=== PATIENT | female | born 1965 ===

== ENCOUNTER 2018-08-13 09:54 | Inpatient (IN) | payer MEDICAID, OTHER ==
[2018-08-13] MEDS ORDERED: Albuterol-Ipratrop 3 mg / 0.5 (3 ml) UD IH STA (10:06)
[2018-08-13] MEDS ORDERED: Levalbuterol 1.25 MG/3 ML Inhal Soln UD IH STA ×3 (10:06→11:51)
[2018-08-13] MEDS ORDERED: Magnesium Sulfate 2 gm/50 ml 2 GM/50 ML BAG IVPB ONE (10:08)
[2018-08-13 10:46] LABS: BASO # 0.02 K/mm3 (0.0-2.0); BASO % 0.2 % (0.0-3.0); EOS % 0.1 % (1.5-5.0); GRAN # 8.11 (1.4-6.5); GRAN % 80.8 % (50.0-68.0); HEMOGLOBIN 14.7 g/dL (12.0-16.0); LYMPH # 1.4 (1.2-3.4); MEAN CORPUSCULAR HEMOGLOBIN 30.1 pg (25.0-35.0); MEAN CORPUSCULAR HGB CONC 33.1 g/dl (31.0-37.0); MEAN PLATELET VOLUME 11.7 fl (7.0-11.0); MONO # 0.5 (0.1-0.6); MONO % 4.9 % (1.0-6.0); RBC 4.88 10^6/uL (3.5-6.1); RED CELL DISTRIBUTION WIDTH 13.9 % (11.5-14.5)
[2018-08-13 10:58] LABS: INR 0.98; PROTHROMBIN TIME 11.3 SECONDS (9.4-12.5)
[2018-08-13 11:00] LABS: ALB/GLOB RATIO 1.1 (1.1-1.8); ALBUMIN 4.2 g/dL (3.0-4.8); ALT/SGPT 28 U/L (7-56); AST/SGOT 35 U/L (14-36); BLOOD UREA NITROGEN 11 mg/dL (7-21); CALCIUM 9.5 mg/dL (8.4-10.5); GFR NON-AFRICAN AMERICAN > 60
--- NOTE | 2018-08-13 11:22 | RAD ---
Date of service: 08/13/2018 HISTORY: SOB COMPARISON: No prior. FINDINGS: LUNGS: The lungs are well inflated and clear. PLEURA: No pleural effusions or pneumothorax. CARDIOVASCULAR: There is mild cardiomegaly. Status post CABG. No aortic atherosclerotic calcification present. OSSEOUS STRUCTURES: Within normal limits for the patient's age. VISUALIZED UPPER ABDOMEN: Normal. OTHER FINDINGS: None. IMPRESSION: No active pulmonary disease.
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
[2018-08-13 12:16] LABS: ARTERIAL BLOOD GAS HCO3 26.6 mmol/L (21-28); ARTERIAL BLOOD GAS HEMOGLOBIN 14.3 g/dL (11.7-17.4); ARTERIAL BLOOD GAS O2 CAPACITY 19.9 mL/dl (16-24); ARTERIAL BLOOD GAS O2 CONTENT 19.9 ML/dl (15-23); ARTERIAL BLOOD GAS O2 SAT 100.2 % (95-98); ARTERIAL BLOOD GAS PCO2 41 mm/Hg (35-45); ARTERIAL BLOOD GAS PH 7.42 (7.35-7.45); ARTERIAL BLOOD GAS TCO2 27.9 mmol.L (22-28)
[2018-08-13] MEDS ORDERED: Albuterol-Ipratrop 3 mg / 0.5 (3 ml) UD IH PRN (13:07)
[2018-08-13] MEDS ORDERED: Levalbuterol 1.25 MG/3 ML Inhal Soln UD IH PRN (13:09)
[2018-08-13] MEDS ORDERED: Albuterol-Ipratrop 3 mg / 0.5 (3 ml) UD IH SCH ×2 (14:00→15:30)
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
[2018-08-13] MEDS: Enoxaparin 40 mg Syringe SC SCH (14:24)
[2018-08-13 15:32] LABS: HDL CHOLESTEROL 61 mg/dL (29-60)
[2018-08-13 15:43] LABS: LDL CHOLESTEROL 60 mg/dL (0-129)
[2018-08-13 15:45] LABS: TROPONIN I < 0.01 ng/mL
[2018-08-13 16:42] VITALS: BMI 46.0
[2018-08-13] MEDS: Insulin Lispro (humaLOG) MEDIUM Coverage SC SCH (16:58)
[2018-08-13] MEDS: Levalbuterol 1.25 MG/3 ML Inhal Soln UD IH PRN ×2 (17:20→21:19)
--- NOTE | 2018-08-13 18:35 | CARD ---
APPROVED REPORT Date of service: 08/13/2018 EKG Measurement Heart [id number] <Conclusion> Sinus tachycardia Minimal voltage criteria for LVH, may be normal variant Nonspecific T wave abnormality Abnormal ECG
[2018-08-13 22:39] VITALS: RESP 20
[2018-08-14] MEDS: Levalbuterol 1.25 MG/3 ML Inhal Soln UD IH PRN ×3 (00:22→11:26)
[2018-08-14] MEDS: Insulin Lispro (humaLOG) MEDIUM Coverage SC SCH ×4 (08:04→17:41)
[2018-08-14] MEDS ORDERED: Ipratropium 0.02% Inhal Soln (0.5 mg/2.5 ml) UD IH PRN (09:44)
[2018-08-14] MEDS ORDERED: Levalbuterol 1.25 MG/3 ML Inhal Soln UD IH PRN (09:44)
[2018-08-14] MEDS ORDERED: MethylPREDNISolone 40 mg Vial IVP SCH (10:00)
[2018-08-14] MEDS ORDERED: ENALAPRIL 5 MG PO SCH (10:00)
[2018-08-14] MEDS: Enoxaparin 40 mg Syringe SC SCH (11:21)
[2018-08-14] MEDS: Ipratropium 0.02% Inhal Soln (0.5 mg/2.5 ml) UD IH SCH ×3 (11:25→19:57)
[2018-08-14] MEDS: Levalbuterol 1.25 MG/3 ML Inhal Soln UD IH SCH ×3 (11:51→19:57)
--- NOTE | 2018-08-14 13:43 | CP.PCM.PN ---
<Fadi Copeland - Last Filed: 08/14/18 14:17> Subjective - Date & Time of Evaluation Date of Evaluation: 08/14/18 Time of Evaluation: 13:41 - Subjective Subjective: Pt seen and examined this morning at bedside. Pt reports wheezing and trouble breathing overnight. Objective - Vital Signs/Intake and Output Vital Signs (last 24 hours): Temp Pulse Resp BP Pulse Ox 98.3 F 99 H 20 159/88 H 98 08/14/18 06:00 08/14/18 11:22 08/14/18 06:00 08/14/18 11:22 08/14/18 06:00 Intake and Output: 08/14/18 08/14/18 06:59 18:59 Intake Total 1240 Balance 1240 - Medications Medications: Current Medications Azithromycin (Zithromax) 250 mg PO DAILY [facility]; Protocol Last Admin: 08/14/18 11:21 Dose: 250 mg Enoxaparin Sodium (Lovenox) 40 mg SC DAILY [facility]; Protocol Last Admin: 08/14/18 11:21 Dose: 40 mg Insulin Human Lispro (Humalog Med) 0 units SC [facility]; Protocol Last Admin: 08/14/18 08:15 Dose: Not Given Ipratropium [place] (Atrovent) 0.5 mg IH [id number] [facility] Last Admin: 08/14/18 11:25 Dose: 0.5 mg Ipratropium [place] (Atrovent) 0.5 mg IH Q2H PRN PRN Reason: Shortness of Breath Levalbuterol HCl (Xopenex) 1.25 mg IH Q2H PRN PRN Reason: Shortness of Breath Levalbuterol HCl (Xopenex) 1.25 mg IH [id number] [facility] Last Admin: 08/14/18 11:51 Dose: Not Given Lisinopril (Zestril) 5 mg PO DAILY [facility] Last Admin: 08/14/18 11:22 Dose: 5 mg Montelukast Sodium (Singulair) 10 mg PO DAILY [facility] Last Admin: 08/14/18 11:22 Dose: 10 mg Prednisone (Prednisone Tab) 40 mg PO DAILY [facility] - Labs Labs: 08/13/18 10:25 08/13/18 10:25 PT 11.3 SECONDS (9.4-12.5) 08/13/18 10:25 INR 0.98 08/13/18 10:25 APTT 27.0 Seconds (25.1-36.5) 08/13/18 10:25 - Constitutional Appears: Well, Non-toxic - Head Exam Head Exam: ATRAUMATIC, NORMAL INSPECTION, NORMOCEPHALIC - Eye Exam Eye Exam: EOMI - ENT Exam ENT Exam: Mucous Membranes Moist - Neck Exam Neck Exam: Full ROM - Respiratory Exam Respiratory Exam: Wheezes, NORMAL BREATHING PATTERN. absent: Accessory Muscle Use, Respiratory Distress, Stridor - Cardiovascular Exam Cardiovascular Exam: RRR, +S1, +S2. absent: Diastolic murmur, Murmur - GI/Abdominal Exam GI & Abdominal Exam: Soft, Normal Bowel Sounds. absent: Distended - Extremities Exam Extremities Exam: Full ROM. absent: Calf Tenderness, Pedal Edema - Neurological Exam Neurological Exam: Alert, Awake, Oriented x3 - Psychiatric Exam Psychiatric exam: Normal Affect, Normal Mood - Skin Skin Exam: Dry, Intact, Warm Assessment and Plan - Assessment and Plan (Free Text) Assessment: Pt is a 52 yo female with a PMH of HTN, DM, herniated inter vertebral disc COPD, asthma, ?TIA who presents to the ED complaining of SOB and a productive cough with green sputum which started 4 days ago. Plan: COPD Exacerbation - xopenex, pt will need 6 treatments in the first 24 hours of admission - prednisone 40mg PO Q12 - azithromycin - blood cultures: NGTD, 24hr - restart home CPAP at night Atypical Chest Pain - troponin x2 negative - follow up EKG, sinus tachycardia - lipid panel: Trig 82, LDL 60, HDL 61 DM - HA1C- 5.8 - SSI, Med - accuchecks ACHS HTN - continue home lisinopril 5 Pedal Edema - ECHO: pending read Herniated Disc, Back Pain - Percocet 5/325, verified with pharmacy Ppx - lovenox - famotidine Pt seen, examined, assessment and plan discussed with Dr Irma Copeland PGY1 <Tay Solis - Last Filed: 08/16/18 15:30> Objective - Vital Signs/Intake and Output Vital Signs (last 24 hours): Temp Pulse Resp BP Pulse Ox 98.1 F 83 20 133/83 98 08/15/18 14:00 08/15/18 14:00 08/15/18 14:00 08/15/18 14:00 08/15/18 14:00 - Labs Labs: 08/15/18 07:00 08/15/18 07:00 PT 11.3 SECONDS (9.4-12.5) 08/13/18 10:25 INR 0.98 08/13/18 10:25 APTT 27.0 Seconds (25.1-36.5) 08/13/18 10:25 Attending/Attestation - Attestation I have personally seen and examined this patient.: Yes I have fully participated in the care of the patient.: Yes I have reviewed all pertinent clinical information, including history, physical exam and plan: Yes Notes (Text): 08/16/18 15:30 Medical record note made by the resident after discussion with my direction and input after the patient was personally seen and examined by me. I have reviewed the chart and agree that the record accurately reflects by personal performance of the history, physical exam, data review, and medical decision-making, in the course for the patient. I have also personally directed the plan of care.
--- NOTE | 2018-08-14 15:49 | CARD ---
APPROVED REPORT Date of service: 08/14/2018 EXAM: Two-dimensional and M-mode echocardiogram with Doppler and color Doppler. INDICATION LEG EDEMA/ESTABLISH EF 2D DIMENSIONS Left Atrium (2D)3.2 (1.6-4.0cm)IVSd1.0 (0.7-1.1cm) LVDd5.0 (3.9-5.9cm)PWd1.1 (0.7-1.1cm) LVDs3.7 (2.5-4.0cm)FS (%) 26.3 % LVEF (%)45.0 (>50%) M-Mode DIMENSIONS Aortic Root2.10 (2.2-3.7cm)Aortic Cusp Exc.1.20 (1.5-2.0cm) Aortic Valve AoV Peak [place]291.0cm/[place] Peak GR.9mmHg Mitral Valve MV E Mpsjhdvz284.0cm/sMV A Qudvfenw57.7cm/sE/A ratio1.1 TDI E/Lateral E'0.0E/Medial E'0.0 LEFT VENTRICLE The left ventricle is normal size. There is normal left ventricular wall thickness. The systolic function is mildly impaired. No Regional wall motion abnormalities noted. The left ventricular diastolic function is normal. No left ventricle thrombus noted on this study. RIGHT VENTRICLE The right ventricle is normal size. There is normal right ventricular wall thickness. The right ventricular systolic function is normal. ATRIA The left atrium size is normal. The right atrium size is normal. AORTIC VALVE The aortic valve is not well visualized. No aortic regurgitation is present. There is no aortic valvular stenosis. MITRAL VALVE The mitral valve is not well visualized. There is no mitral valve regurgitation noted. There is no mitral valve stenosis. TRICUSPID VALVE There is no tricuspid valve regurgitation noted. PULMONIC VALVE There is no pulmonic valvular regurgitation. GREAT VESSELS The aortic root is normal in size. The IVC is normal in size and collapses >50% with inspiration. PERICARDIAL EFFUSION There is no pericardial effusion. <Conclusion> The left ventricle is normal size. There is normal left ventricular wall thickness. The systolic function is mildly impaired. No Regional wall motion abnormalities noted. The left ventricular diastolic function is normal.
[2018-08-15] MEDS: Levalbuterol 1.25 MG/3 ML Inhal Soln UD IH SCH ×4 (00:21→11:15)
[2018-08-15] MEDS: Ipratropium 0.02% Inhal Soln (0.5 mg/2.5 ml) UD IH SCH ×4 (00:21→11:15)
[2018-08-15] MEDS: Insulin Lispro (humaLOG) MEDIUM Coverage SC SCH ×2 (04:35→10:48)
[2018-08-15 07:17] LABS: BASO # 0.01 K/mm3 (0.0-2.0); BASO % 0.1 % (0.0-3.0); EOS % 0.2 % (1.5-5.0); GRAN # 8.81 (1.4-6.5); GRAN % 71.3 % (50.0-68.0); HEMOGLOBIN 13.6 g/dL (12.0-16.0); LYMPH # 2.8 (1.2-3.4); LYMPH % 22.9 % (22.0-35.0); MEAN CELL VOLUME 93.9 fl (80.0-105.0); MEAN CORPUSCULAR HEMOGLOBIN 29.8 pg (25.0-35.0); MEAN CORPUSCULAR HGB CONC 31.7 g/dl (31.0-37.0); MEAN PLATELET VOLUME 11.3 fl (7.0-11.0); MONO # 0.7 (0.1-0.6); MONO % 5.5 % (1.0-6.0); RBC 4.57 10^6/uL (3.5-6.1); RED CELL DISTRIBUTION WIDTH 14.5 % (11.5-14.5); WHITE BLOOD COUNT 12.4 10^3/ul (4.5-11.0)
[2018-08-15 08:05] LABS: ALB/GLOB RATIO 1.1 (1.1-1.8); ALBUMIN 3.8 g/dL (3.0-4.8); ALT/SGPT 39 U/L (7-56); AST/SGOT 25 U/L (14-36); BLOOD UREA NITROGEN 21 mg/dL (7-21); CALCIUM 8.8 mg/dL (8.4-10.5); GFR NON-AFRICAN AMERICAN > 60
[2018-08-15] MEDS: Enoxaparin 40 mg Syringe SC SCH (10:47)
[2018-08-15 14:49] VITALS: BP 133/83; PULSE 83; TEMP 98.1; O2SAT 98
--- NOTE | 2018-08-15 17:44 | CP.PCM.DIS ---
<Fadi Copeland - Last Filed: 08/15/18 17:50> Provider - Provider Date of Admission: 08/13/18 12:40 Attending physician: Tay Solis MD Time Spent in preparation of Discharge (in minutes): 45 Diagnosis - Discharge Diagnosis (1) Asthma Status: Acute Priority: High (2) COPD exacerbation Status: Acute Priority: High (3) Atypical chest pain Status: Acute Priority: High (4) HTN (hypertension) Status: Chronic Priority: Medium (5) Herniated disc Status: Chronic Priority: Medium Hospital Course - Lab Results Lab Results: Micro Results 08/13/18 10:30 Blood-Venous Blood Culture - Preliminary NO GROWTH AFTER 48 HOURS 08/13/18 10:00 Blood-Venous Blood Culture - Preliminary NO GROWTH AFTER 48 HOURS Most Recent Lab Values WBC 12.4 10^3/ul (4.5-11.0) H D 08/15/18 07:00 RBC 4.57 10^6/uL (3.5-6.1) 08/15/18 07:00 Hgb 13.6 g/dL (12.0-16.0) 08/15/18 07:00 Hct 42.9 % (36.0-48.0) 08/15/18 07:00 MCV 93.9 fl (80.0-105.0) 08/15/18 07:00 MCH 29.8 pg (25.0-35.0) 08/15/18 07:00 MCHC 31.7 g/dl (31.0-37.0) 08/15/18 07:00 RDW 14.5 % (11.5-14.5) 08/15/18 07:00 Plt Count 267 10^3/uL (120.0-450.0) 08/15/18 07:00 MPV 11.3 fl (7.0-11.0) H 08/15/18 07:00 Gran % 71.3 % (50.0-68.0) H 08/15/18 07:00 Lymph % (Auto) 22.9 % (22.0-35.0) 08/15/18 07:00 [place] % (Auto) 5.5 % (1.0-6.0) 08/15/18 07:00 Eos % (Auto) 0.2 % (1.5-5.0) L 08/15/18 07:00 Baso % (Auto) 0.1 % (0.0-3.0) 08/15/18 07:00 Gran # 8.81 (1.4-6.5) H 08/15/18 07:00 Lymph # (Auto) 2.8 (1.2-3.4) 08/15/18 07:00 [place] # (Auto) 0.7 (0.1-0.6) H 08/15/18 07:00 Eos # (Auto) 0.0 (0.0-0.7) 08/15/18 07:00 Baso # (Auto) 0.01 K/mm3 (0.0-2.0) 08/15/18 07:00 PT 11.3 SECONDS (9.4-12.5) 08/13/18 10:25 INR 0.98 08/13/18 10:25 APTT 27.0 Seconds (25.1-36.5) 08/13/18 10:25 pCO2 41 mm/Hg (35-45) 08/13/18 12:14 pO2 213.0 mm/Hg (80-100) H 08/13/18 12:14 HCO3 26.6 mmol/L (21-28) 08/13/18 12:14 ABG pH 7.42 (7.35-7.45) 08/13/18 12:14 ABG Total CO2 27.9 mmol.L (22-28) 08/13/18 12:14 ABG O2 Saturation 100.2 % (95-98) H 08/13/18 12:14 ABG O2 Content 19.9 ML/dl (15-23) 08/13/18 12:14 ABG Base Excess 1.9 mmol/L (-2.0-3.0) 08/13/18 12:14 ABG Hemoglobin 14.3 g/dL (11.7-17.4) 08/13/18 12:14 ABG Carboxyhemoglobin 2.3 % (0.5-1.5) H 08/13/18 12:14 POC ABG HHb (Measured) -0.2 % (0-5) L 08/13/18 12:14 ABG Methemoglobin 1.1 % (0.0-3.0) 08/13/18 12:14 ABG O2 Capacity 19.9 mL/dl (16-24) 08/13/18 12:14 Hgb O2 Saturation 96.7 % (95.0-98.0) 08/13/18 12:14 FiO2 100.0 % 08/13/18 12:14 Sodium 137 mmol/L (132-148) 08/15/18 07:00 Potassium 4.0 mmol/L (3.6-5.0) 08/15/18 07:00 Chloride 103 mmol/L (98-107) 08/15/18 07:00 Carbon Dioxide 29 mmol/L (21-33) 08/15/18 07:00 Anion Gap 9 (10-20) L 08/15/18 07:00 BUN 21 mg/dL (7-21) 08/15/18 07:00 Creatinine 0.8 mg/dl (0.7-1.2) 08/15/18 07:00 Est GFR ( Amer) > 60 08/15/18 07:00 Est GFR (Non-Af Amer) > 60 08/15/18 07:00 POC Glucose (mg/dL) 106 mg/dL (65-110) 08/15/18 11:24 Random Glucose 99 mg/dL (70-110) 08/15/18 07:00 Hemoglobin A1c 5.8 % (4.2-6.5) 08/13/18 11:30 Calcium 8.8 mg/dL (8.4-10.5) 08/15/18 07:00 Total Bilirubin 0.4 mg/dL (0.2-1.3) 08/15/18 07:00 AST 25 U/L (14-36) 08/15/18 07:00 ALT 39 U/L (7-56) 08/15/18 07:00 Alkaline Phosphatase 59 U/L (38-126) 08/15/18 07:00 Troponin I < 0.01 ng/mL 08/13/18 21:00 Total Protein 7.1 g/dL (5.8-8.3) 08/15/18 07:00 Albumin 3.8 g/dL (3.0-4.8) 08/15/18 07:00 Globulin 3.4 gm/dL 08/15/18 07:00 Albumin/Globulin Ratio 1.1 (1.1-1.8) 08/15/18 07:00 Triglycerides 82 mg/dL (35-160) 08/13/18 15:10 Cholesterol 142 mg/dL (130-200) 08/13/18 15:10 LDL Cholesterol Direct 60 mg/dL (0-129) 08/13/18 15:10 HDL Cholesterol 61 mg/dL (29-60) H 08/13/18 15:10 - Hospital Course Hospital Course: Pt is a 52 yo female with a PMH of HTN, DM, herniated intervertebral disc COPD, asthma, ?TIA who presented to the ED 08/13/18 complaining of SOB and a productive cough with green sputum which started 4 days prior to admission. Pt reported SOB and wheezing with associated subjective fevers/chills but did not check her temperature at home. Pt also experienced 8/10 burning chest pain which was only associated with when she would cough. Her fiancee by the bedside stated she uses her inhaler daily, but her symptoms became worse the night prior to admission.. She report history of admission secondary to Asthma. Never intubated and not steroid dependent. Pt denied recent travel, sick contacts, diarrhea, constipation, nausea, vomiting, or urinary symptoms. Pt reported nothing makes the cough better or worse. On admission, pt appeared in respiratory distress and anxious. She was given duoneb treatment, 3 treatments of xopenex and solumedrol 125 mg for asthma exacerbation in the ED. She was given 3 more treatments of xopenex and started on azithromycin and methylprednisolone 40mg Q12. Symptoms improved and Methylprednisolone subsequently changed to PO prednisone 40mg.. Blood cultures were negative. Pt was restarted on her CPAP at night. Workup was also done for her chest pain. Troponins were negative x2, EKG showed, lipid panel showed: Trig 82, LDL 60, HDL 61. Pt had pedal edema on exam and echo showed EF 45%, mildly impaired systolic function, normal left ventricular size and wall thickness with no regional wall motion abnormalities. Pt was also continued on her home lisinopril 5mg for hypertension. Pts symptoms continued to improve. She was discharge on Prednisone taper, Azithromycin 250mg PO daily, Albuterol sulfate inhaler, symbicort inhaler. - Date & Time of H&P Date of H&P: 08/15/18 Time of H&P: 07:00 Discharge Exam - Head Exam Head Exam: ATRAUMATIC, NORMAL INSPECTION, NORMOCEPHALIC - Eye Exam Eye Exam: EOMI - ENT Exam ENT Exam: Mucous Membranes Moist - Neck Exam Neck exam: Full Rom - Respiratory Exam Respiratory Exam: NORMAL BREATHING PATTERN. absent: Accessory Muscle Use, Resp iratory Distress, Stridor - Cardiovascular Exam Cardiovascular Exam: RRR, +S1, +S2. absent: Diastolic murmur, Systolic Murmur - GI/Abdominal Exam GI & Abdominal Exam: Normal Bowel Sounds, Soft, Unremarkable - Extremities Exam Extremities exam: pedal pulses present - Neurological Exam Neurological exam: Alert, Oriented x3 - Psychiatric Exam Psychiatric exam: Normal Affect, Normal Mood - Skin Skin Exam: Dry, Intact, Warm Discharge Plan - Discharge Medications Prescriptions: Albuterol Sulfate [Ventolin Hfa] 1 puff IH PRN PRN #1 inhaler PRN Reason: Wheezing Budesonide/Formoterol Fumarate [Symbicort 160-4.5 Mcg Inhaler] 10.2 gm IH BID #1 hfa.aer.ad RX: predniSONE [predniSONE Tab] See Taper PO DAILY #30 tab - Follow Up Plan Condition: FAIR Disposition: HOME/ ROUTINE Instructions: Wheezing, Avoiding Asthma Triggers, Flu Vaccine, Asthma (DC) Additional Instructions: 1. please follow up your primary care physician within 1 week 2. please continue to take your medications as prescribed 4. please use your symbicort and ventolin inhalers as directed 5. please take your prednisone taper taper 6. please return to the nearest emergency room if your symptoms return or worsen <Tay Solis - Last Filed: 08/16/18 15:26> Provider - Provider Date of Admission: 08/13/18 12:40 Attending physician: Tay Solis MD Hospital Course - Lab Results Lab Results: Micro Results 08/13/18 10:30 Blood-Venous Blood Culture - Preliminary NO GROWTH AFTER 3 DAYS 08/13/18 10:00 Blood-Venous Blood Culture - Preliminary NO GROWTH AFTER 3 DAYS Most Recent Lab Values WBC 12.4 10^3/ul (4.5-11.0) H D 08/15/18 07:00 RBC 4.57 10^6/uL (3.5-6.1) 08/15/18 07:00 Hgb 13.6 g/dL (12.0-16.0) 08/15/18 07:00 Hct 42.9 % (36.0-48.0) 08/15/18 07:00 MCV 93.9 fl (80.0-105.0) 08/15/18 07:00 MCH 29.8 pg (25.0-35.0) 08/15/18 07:00 MCHC 31.7 g/dl (31.0-37.0) 08/15/18 07:00 RDW 14.5 % (11.5-14.5) 08/15/18 07:00 Plt Count 267 10^3/uL (120.0-450.0) 08/15/18 07:00 MPV 11.3 fl (7.0-11.0) H 08/15/18 07:00 Gran % 71.3 % (50.0-68.0) H 08/15/18 07:00 Lymph % (Auto) 22.9 % (22.0-35.0) 08/15/18 07:00 [place] % (Auto) 5.5 % (1.0-6.0) 08/15/18 07:00 Eos % (Auto) 0.2 % (1.5-5.0) L 08/15/18 07:00 Baso % (Auto) 0.1 % (0.0-3.0) 08/15/18 07:00 Gran # 8.81 (1.4-6.5) H 08/15/18 07:00 Lymph # (Auto) 2.8 (1.2-3.4) 08/15/18 07:00 [place] # (Auto) 0.7 (0.1-0.6) H 08/15/18 07:00 Eos # (Auto) 0.0 (0.0-0.7) 08/15/18 07:00 Baso # (Auto) 0.01 K/mm3 (0.0-2.0) 08/15/18 07:00 PT 11.3 SECONDS (9.4-12.5) 08/13/18 10:25 INR 0.98 08/13/18 10:25 APTT 27.0 Seconds (25.1-36.5) 08/13/18 10:25 pCO2 41 mm/Hg (35-45) 08/13/18 12:14 pO2 213.0 mm/Hg (80-100) H 08/13/18 12:14 HCO3 26.6 mmol/L (21-28) 08/13/18 12:14 ABG pH 7.42 (7.35-7.45) 08/13/18 12:14 ABG Total CO2 27.9 mmol.L (22-28) 08/13/18 12:14 ABG O2 Saturation 100.2 % (95-98) H 08/13/18 12:14 ABG O2 Content 19.9 ML/dl (15-23) 08/13/18 12:14 ABG Base Excess 1.9 mmol/L (-2.0-3.0) 08/13/18 12:14 ABG Hemoglobin 14.3 g/dL (11.7-17.4) 08/13/18 12:14 ABG Carboxyhemoglobin 2.3 % (0.5-1.5) H 08/13/18 12:14 POC ABG HHb (Measured) -0.2 % (0-5) L 08/13/18 12:14 ABG Methemoglobin 1.1 % (0.0-3.0) 08/13/18 12:14 ABG O2 Capacity 19.9 mL/dl (16-24) 08/13/18 12:14 Hgb O2 Saturation 96.7 % (95.0-98.0) 08/13/18 12:14 FiO2 100.0 % 08/13/18 12:14 Sodium 137 mmol/L (132-148) 08/15/18 07:00 Potassium 4.0 mmol/L (3.6-5.0) 08/15/18 07:00 Chloride 103 mmol/L (98-107) 08/15/18 07:00 Carbon Dioxide 29 mmol/L (21-33) 08/15/18 07:00 Anion Gap 9 (10-20) L 08/15/18 07:00 BUN 21 mg/dL (7-21) 08/15/18 07:00 Creatinine 0.8 mg/dl (0.7-1.2) 08/15/18 07:00 Est GFR ( Amer) > 60 08/15/18 07:00 Est GFR (Non-Af Amer) > 60 08/15/18 07:00 POC Glucose (mg/dL) 106 mg/dL (65-110) 08/15/18 11:24 Random Glucose 99 mg/dL (70-110) 08/15/18 07:00 Hemoglobin A1c 5.8 % (4.2-6.5) 08/13/18 11:30 Calcium 8.8 mg/dL (8.4-10.5) 08/15/18 07:00 Total Bilirubin 0.4 mg/dL (0.2-1.3) 08/15/18 07:00 AST 25 U/L (14-36) 08/15/18 07:00 ALT 39 U/L (7-56) 08/15/18 07:00 Alkaline Phosphatase 59 U/L (38-126) 08/15/18 07:00 Troponin I < 0.01 ng/mL 08/13/18 21:00 Total Protein 7.1 g/dL (5.8-8.3) 08/15/18 07:00 Albumin 3.8 g/dL (3.0-4.8) 08/15/18 07:00 Globulin 3.4 gm/dL 08/15/18 07:00 Albumin/Globulin Ratio 1.1 (1.1-1.8) 08/15/18 07:00 Triglycerides 82 mg/dL (35-160) 08/13/18 15:10 Cholesterol 142 mg/dL (130-200) 08/13/18 15:10 LDL Cholesterol Direct 60 mg/dL (0-129) 08/13/18 15:10 HDL Cholesterol 61 mg/dL (29-60) H 08/13/18 15:10 Attending/Attestation - Attestation I have personally seen and examined this patient.: Yes I have fully participated in the care of the patient.: Yes I have reviewed all pertinent clinical information, including history, physical exam and plan: Yes Notes (Text): 08/16/18 15:23 Medical record note made by the resident after discussion with my direction and input after the patient was personally seen and examined by me. I have reviewed the chart and agree that the record accurately reflects by personal performance of the history, physical exam, data review, and medical decision-making, in the course for the patient. I have also personally directed the plan of care. 52 yo female with a PMH of HTN, DM,COPD, Chronic Back Pain and sleep apnea on CPAP was admitted with COPD exacerbation. Patient has responded will to Nebs /Steroid and antibiotics. Issue of ongoing smoking and drug abuse was discussed in detail with her. Patient will be discharged home and will follow up with PCP Management plan was discussed in detail with patient. Education was provided.
== END 2018-08-15 17:10 | disposition home or self-care (01) | DRG 96 ==
LOC: ED 09:54 → ERH 12:40 → 5RSO 15:27
PROVIDERS: ADMIT Internal Medicine; ATTEND Internal Medicine
DX: J45.901 Unspecified asthma with (acute) exacerbation (principal); J44.1 Chronic obstructive pulmonary disease with (acute) exacerbation; I10 Essential (primary) hypertension; E11.9 Type 2 diabetes mellitus without complications; G47.30 Sleep apnea, unspecified; K21.9 Gastro-esophageal reflux disease without esophagitis; M51.27 Other intervertebral disc displacement, lumbosacral region; E66.01 Morbid (severe) obesity due to excess calories; Z68.42 Body mass index [BMI] 45.0-49.9, adult; Z79.84 Long term (current) use of oral hypoglycemic drugs; Z87.891 Personal history of nicotine dependence

== ENCOUNTER 2018-09-24 11:57 | Emergency (ER) | payer MEDICAID ==
[2018-09-24 12:01] VITALS: BMI 44.0
[2018-09-24] MEDS ORDERED: Albuterol-Ipratrop 3 mg / 0.5 (3 ml) UD IH STA (12:27)
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
[2018-09-24 13:05] LABS: BASO # 0.03 K/mm3 (0.0-2.0); BASO % 0.2 % (0.0-3.0); EOS # 0.2 (0.0-0.7); GRAN # 16.45 (1.4-6.5); GRAN % 89.8 % (50.0-68.0); HEMOGLOBIN 15.9 g/dL (12.0-16.0); LYMPH # 0.9 (1.2-3.4); LYMPH % 5.1 % (22.0-35.0); MEAN CELL VOLUME 91.3 fl (80.0-105.0); MEAN CORPUSCULAR HEMOGLOBIN 30.7 pg (25.0-35.0); MEAN CORPUSCULAR HGB CONC 33.6 g/dl (31.0-37.0); MEAN PLATELET VOLUME 11.4 fl (7.0-11.0); MONO # 0.7 (0.1-0.6); MONO % 3.9 % (1.0-6.0); RBC 5.18 10^6/uL (3.5-6.1); RED CELL DISTRIBUTION WIDTH 14.2 % (11.5-14.5); WHITE BLOOD COUNT 18.3 10^3/uL (4.5-11.0)
[2018-09-24 13:55] LABS: BLOOD UREA NITROGEN 9 mg/dL (7-21); GFR NON-AFRICAN AMERICAN > 60
--- NOTE | 2018-09-24 14:28 | RAD ---
Date of service: 09/24/2018 HISTORY: dyspnea COMPARISON: 08/13/2018 FINDINGS: LUNGS: No active pulmonary disease. PLEURA: No significant pleural effusion identified, no pneumothorax apparent. CARDIOVASCULAR: No aortic atherosclerotic calcification present. Mild cardiomegaly no pulmonary vascular congestion. OSSEOUS STRUCTURES: Sternal wires VISUALIZED UPPER ABDOMEN: Normal. OTHER FINDINGS: None. IMPRESSION: No active disease.
[2018-09-24 14:52] VITALS: BP 122/74; PULSE 88; RESP 19; TEMP 98.2; O2SAT 98
== END 2018-09-24 14:52 | disposition home or self-care (01) ==
LOC: ED 11:57
DX: J45.901 Unspecified asthma with (acute) exacerbation (principal); J02.0 Streptococcal pharyngitis; I10 Essential (primary) hypertension; E11.9 Type 2 diabetes mellitus without complications; Z87.891 Personal history of nicotine dependence; Z91.14 Patient's other noncompliance with medication regimen
CPT/HCPCS: 71045; 80048; 85025; 87430; 96374; 99282; J2930

== ENCOUNTER 2018-10-17 10:51 | Emergency (ER) | payer MEDICAID ==
[2018-10-17 10:52] VITALS: BMI 44.0
[2018-10-17 11:12] VITALS: RESP 18; TEMP 98.1
[2018-10-17] MEDS ORDERED: Albuterol-Ipratrop 3 mg / 0.5 (3 ml) UD IH STA (11:34)
[2018-10-17] MEDS ORDERED: PrednisoLONE 15 mg/5 ml Oral Syrup (240 ml) PO STA (11:34)
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
[2018-10-17 12:26] LABS: BASO # 0.03 K/mm3 (0.0-2.0); BASO % 0.4 % (0.0-3.0); EOS # 0.4 (0.0-0.7); EOS % 4.4 % (1.5-5.0); GRAN # 4.97 (1.4-6.5); GRAN % 62.7 % (50.0-68.0); HEMOGLOBIN 14.6 g/dL (12.0-16.0); LYMPH # 2.2 (1.2-3.4); LYMPH % 27.5 % (22.0-35.0); MEAN CELL VOLUME 90.4 fl (80.0-105.0); MEAN CORPUSCULAR HEMOGLOBIN 29.8 pg (25.0-35.0); MEAN PLATELET VOLUME 11.2 fl (7.0-11.0); MONO # 0.4 (0.1-0.6); RBC 4.9 10^6/uL (3.5-6.1); RED CELL DISTRIBUTION WIDTH 14.3 % (11.5-14.5); WHITE BLOOD COUNT 7.9 10^3/uL (4.5-11.0)
--- NOTE | 2018-10-17 12:38 | RAD ---
Date of service: 10/17/2018 HISTORY: sob COMPARISON: 09/24/2018 FINDINGS: LUNGS: No active pulmonary disease. PLEURA: No significant pleural effusion identified, no pneumothorax apparent. CARDIOVASCULAR: No aortic atherosclerotic calcification present. Normal cardiac size. No pulmonary vascular congestion. OSSEOUS STRUCTURES: Sternal wires VISUALIZED UPPER ABDOMEN: Normal. OTHER FINDINGS: None. IMPRESSION: No active disease.
[2018-10-17 12:43] LABS: ALB/GLOB RATIO 1.2 (1.1-1.8); ALBUMIN 3.9 g/dL (3.0-4.8); ALT/SGPT 32 U/L (7-56); AST/SGOT 18 U/L (14-36); BLOOD UREA NITROGEN 12 mg/dL (7-21); CALCIUM 9.3 mg/dL (8.4-10.5); GFR NON-AFRICAN AMERICAN > 60
[2018-10-17 12:47] LABS: TROPONIN I < 0.01 ng/mL
[2018-10-17 13:38] VITALS: BP 123/70; PULSE 91; O2SAT 97
--- NOTE | 2018-10-17 14:59 | CARD ---
APPROVED REPORT Date of service: 10/17/2018 EKG Measurement Heart [id number] <Conclusion> Normal sinus rhythm Nonspecific T wave abnormality LVH by voltage Q in lll
== END 2018-10-17 13:34 | disposition home or self-care (01) ==
LOC: ED 10:51
DX: J44.9 Chronic obstructive pulmonary disease, unspecified (principal); I10 Essential (primary) hypertension; E11.9 Type 2 diabetes mellitus without complications; Z87.891 Personal history of nicotine dependence
CPT/HCPCS: 71045; 80053; 84484; 85025; 93005; 94640; 99283; J7510